=== PATIENT | male | born 1960 | race Caucasian/White ===

== ENCOUNTER 2021-06-25 17:39 | Emergency (ER) | payer BC ==
[~2021-06-25] VITALS: Ht 172.7 cm; Wt 65.8 kg
[2021-06-25 17:43] VITALS: BP_SYST 119
[2021-06-25 18:20] LABS: BILIRUBIN,URINE NEGATIVE (NEGATIVE); CLARITY/URINE CLEAR (CLEAR); COLOR,URINE YELLOW (YELLOW); GLUCOSE,URINE NEGATIVE (NEGATIVE); KETONES,URINE NEGATIVE (NEGATIVE); LEUKOCYTE ESTERASE ,URINE NEGATIVE (NEGATIVE); NITRITE, URINE NEGATIVE (NEGATIVE); PROTEIN URINE NEGATIVE (NEGATIVE); UROBILINOGEN,URINE 0.2 (0.2-1.0)
[2021-06-25 18:32] LABS: BLOOD, URINE TRACE (NEGATIVE)
[2021-06-25 18:43] LABS: BACTERIA,URINE RARE /HPF (None Seen); RBC,URINE 0-3 /HPF (0-3); WBC,URINE NONE SEEN /HPF (0-3)
--- NOTE | 2021-06-25 19:06 | NUR ---
Patient to ER bed 03 to gown for evaluation. Side rails up.
--- NOTE | 2021-06-25 19:08 | NUR ---
Pt brought by self, A&Ox4, pt presents to ER with pain and burning with urination and groin pain, afebrile, skin pink and warm, cap refill <3, VSS
--- NOTE | 2021-06-25 19:09 | NUR ---
Patient ambulated to radiology, accompanied by staff.
--- NOTE | 2021-06-25 19:17 | NUR ---
Dr Aviles evaluating patient at bedside
[2021-06-25] MEDS ORDERED: PHENAZOPYRIDINE HCL 100 MG TABLET PO ONE (20:30)
[2021-06-25] MEDS ORDERED: cefTRIAXone 1 GM VIAL IM ONE (20:30)
[2021-06-25] MEDS ORDERED: CEFI200T PO (20:43)
[2021-06-25] MEDS ORDERED: PHEN-726 PO (20:43)
[2021-06-25] MEDS ORDERED: IBUP-1969 PO (20:45)
[2021-06-25] MEDS ORDERED: IBUPROFEN 600 MG TABLET PO ONE (20:45)
[2021-06-25 20:53] VITALS: BP_SYST 119
--- NOTE | 2021-06-25 20:55 | NUR ---
Patient given written and verbal discharge instructions and verbalizes understanding. ER MD discussed with patient the results and treatment provided. Patient in stable condition. ID arm band removed. Rx of Suprax, Ibuprofen, Pyridium given. Patient educated on pain management and to follow up with PMD. Pain Scale 2/10 . Opportunity for questions provided and answered. Medication side effect fact sheet provided.
== END 2021-06-25 20:53 | disposition home or self-care (01) ==
LOC: SED 17:39
DX: N41.9 Inflammatory disease of prostate, unspecified (principal)
CPT/HCPCS: 76870; 81000; 87086; 96372; 99284; J0696

== ENCOUNTER 2021-07-03 16:39 | Emergency (ER) | payer BC ==
[~2021-07-03] VITALS: Ht 172.7 cm; Wt 59.0 kg
[~2021-07-03 16:39] MED LIST: CEFI200T PO; IBUP-1969 PO; PHEN-726 PO
[2021-07-03 16:41] VITALS: BP_SYST 144
[2021-07-03] MEDS ORDERED: NACL 0.9% 1,000 ML IV ONE (16:45)
[2021-07-03 17:28] LABS: BASOPHILS % (AUTO) 0.2 % (0.0-2.0); EOSINOPHILS # (AUTO) 0.2 K/uL (0.0-0.4); EOSINOPHILS % (AUTO) 3.7 % (0.0-4.0); HEMOGLOBIN 14.5 g/dL (14.0-18.0); LYMPHOCYTES # (AUTO) 1.6 K/uL (1.0-5.5); LYMPHOCYTES % (AUTO) 26.4 % (20.5-51.5); MEAN CORPUSCULAR HEMOGLOBIN 31 pg (27-31); MEAN CORPUSCULAR HGB CONC 34 % (32-36); MEAN CORPUSCULAR VOLUME 92 fL (79.0-98.0); MONOCYTES # (AUTO) 0.6 K/uL (0.0-1.0); MONOCYTES % (AUTO) 9.6 % (1.7-9.3); NEUTROPHILS # (AUTO) 3.7 K/uL (1.8-7.7); NEUTROPHILS % (AUTO) 60.1 % (40.0-70.0); PLATELET COUNT (AUTO) 207 K/uL (130-430); RED BLOOD CELL COUNT(AUTO) 4.69 MIL/uL (4.2-6.2); RED CELL DISTRIBUTION WIDTH 14.3 % (9.0-15.0); WHITE BLOOD COUNT (AUTO) 6.2 K/uL (4.8-10.8)
[2021-07-03 17:43] LABS: ANION GAP 8 (5-15); CALCIUM 8.9 mg/dL (8.4-11.0); CHLORIDE 103 mmol/L (98-107); GLUCOSE 97 mg/dL (70-99); POTASSIUM 4.1 mmol/L (3.5-5.1); SODIUM SERUM 139 mmol/L (136-145); UREA NITROGEN, BLOOD 17 mg/dL (8-21)
[2021-07-03 17:44] LABS: GFR AFRICAN AMERICAN 99 mL/min (>90)
[2021-07-03 17:51] LABS: ALANINE AMINOTRANSFERASE 28 U/L (12-78); ALBUMIN 3.6 g/dL (3.4-4.8); ASPARTATE AMINOTRANSFERASE 19 U/L (10-37); TOTAL BILIRUBIN 0.4 mg/dL (0.0-1.0)
[2021-07-03 19:31] VITALS: BP_SYST 144
== END 2021-07-03 19:31 | disposition home or self-care (01) ==
LOC: SED 16:39
DX: I73.9 Peripheral vascular disease, unspecified (principal); Z79.899 Other long term (current) drug therapy
CPT/HCPCS: 36415; 70450; 76376; 80053; 84484; 85025; 93005; 93922; 96360; 99285; J7030